=== PATIENT | male | born 1965 | race Native Hawaiian/Other Pacific Islander ===

== ENCOUNTER 2020-07-25 13:42 | Outpatient (CLI) | payer OTHER | END 2020-07-25 23:50 | disposition home or self-care (01) | LOC: RAD 13:42 | PROVIDERS: ATTEND Physician Assistant | DX: M54.5 Low back pain (principal) ==

== ENCOUNTER 2020-08-20 14:50 | Outpatient (CLI) | payer OTHER | END 2020-08-20 23:59 | disposition home or self-care (01) | LOC: MRI 14:50 | PROVIDERS: ATTEND Physician Assistant | DX: M54.9 Dorsalgia, unspecified (principal); M54.30 Sciatica, unspecified side | CPT/HCPCS: 36415; 82565; 84520; A9576 ==

== ENCOUNTER 2022-05-15 06:39 | Outpatient (CLI) | payer OTHER | END 2022-05-15 20:34 | disposition home or self-care (01) | LOC: CT 06:39 | PROVIDERS: ATTEND Physician Assistant | DX: R10.2 Pelvic and perineal pain (principal); R14.0 Abdominal distension (gaseous) | CPT/HCPCS: 36415; 82565; 84520; Q9963 ==

== ENCOUNTER 2022-06-15 16:00 | Emergency (ER) | payer OTHER ==
[~2022-06-15] VITALS: Ht 170.2 cm; Wt 64.9 kg
[2022-06-15 16:03] VITALS: TEMP 97.8
[2022-06-15 17:14] LABS: PLATELET COUNT 177 K/uL (142-355)
[2022-06-15 17:25] LABS: POTASSIUM 2.9 mmol/L (3.6-5.2)
[2022-06-15 19:00] VITALS: BP 124/76
== END 2022-06-15 20:10 | disposition short-term general hospital (02) ==
LOC: ED 16:00
PROVIDERS: Emergency Medicine Emergency Medical Services
DX: K74.69 Other cirrhosis of liver (principal); K85.90 Acute pancreatitis without necrosis or infection, unspecified; F17.210 Nicotine dependence, cigarettes, uncomplicated
CPT/HCPCS: 36415; 80053; 82140; 82150; 83690; 83880; 84484; 85027; 85610; 87040; 93005; 96365; 96375; 99284; J2270; J2405; J2543; Q9963

== ENCOUNTER 2022-07-16 08:25 | Outpatient (CLI) | payer OTHER ==
[2022-07-16 08:57] LABS: PLATELET COUNT 204 K/uL (142-355)
[2022-07-16 09:13] LABS: POTASSIUM 2.9 mmol/L (3.6-5.2)
== END 2022-07-16 17:00 ==
LOC: LABW 08:25
PROVIDERS: ATTEND Internal Medicine Gastroenterology
DX: K74.69 Other cirrhosis of liver (principal)
CPT/HCPCS: 36415; 80053; 82140; 85027; 85610

== ENCOUNTER 2022-10-06 16:07 | Outpatient (CLI) | payer OTHER ==
[2022-10-06 16:55] LABS: POTASSIUM 3.5 mmol/L (3.6-5.2)
== END 2022-10-06 19:00 | disposition home or self-care (01) ==
LOC: LABW 16:07
PROVIDERS: ATTEND Nurse Practitioner Family
DX: E87.6 Hypokalemia (principal); K70.31 Alcoholic cirrhosis of liver with ascites
CPT/HCPCS: 36415; 82374; 82435; 84132; 84295

== ENCOUNTER 2022-11-26 08:55 | Outpatient (CLI) | payer OTHER | END 2022-11-26 19:08 | disposition home or self-care (01) | LOC: CT 08:55 | PROVIDERS: ATTEND Internal Medicine Gastroenterology | DX: K70.31 Alcoholic cirrhosis of liver with ascites (principal) | CPT/HCPCS: 36415; 82565; 84520; Q9963 ==

== ENCOUNTER 2022-11-30 08:39 | Outpatient (CLI) | payer OTHER | END 2022-11-30 18:59 | disposition home or self-care (01) | LOC: US 08:39 | PROVIDERS: ATTEND Internal Medicine Gastroenterology | DX: K70.31 Alcoholic cirrhosis of liver with ascites (principal) ==